=== PATIENT | male | born 1990 | race Caucasian/White ===

== ENCOUNTER 2017-07-21 16:37 | Inpatient (IN) | payer MEDICAID ==
[~2017-07-21] VITALS: Ht 182.9 cm; Wt 105.5 kg
[2017-07-21] MEDS ORDERED: ZOLPIDEM TARTRATE 10 MG TABLET PO PRN (20:00)
[2017-07-21] MEDS ORDERED: HALOPERIDOL 5 MG TABLET PO PRN (20:00)
[2017-07-21] MEDS ORDERED: LORazepam 2 MG TABLET PO PRN (20:00)
[2017-07-22 14:30] VITALS: BP 138/83
[2017-07-23 08:08] VITALS: BP 132/79
[2017-07-23] MEDS: OLANZapine 5 MG TABLET PO SCH (11:48)
[2017-07-24 08:16] VITALS: BP 140/77
[2017-07-24] MEDS: OLANZapine 5 MG TABLET PO SCH ×2 (08:54→17:06)
[2017-07-25] MEDS: OLANZapine 5 MG TABLET PO SCH ×2 (08:32→16:41)
[2017-07-25] MEDS ORDERED: OLANZapine 5 MG TABLET PO SCH (17:00)
[2017-07-26 08:00] VITALS: BP 123/73
[2017-07-26] MEDS: OLANZapine 10 MG TABLET PO SCH ×3 (09:00→17:00)
[2017-07-27] MEDS: OLANZapine 10 MG TABLET PO SCH ×2 (08:46→17:43)
[2017-07-28 08:58] VITALS: BP 133/84
[2017-07-28] MEDS: OLANZapine 10 MG TABLET PO SCH ×2 (09:32→17:52)
[2017-07-29] MEDS: OLANZapine 10 MG TABLET PO SCH ×2 (09:07→16:55)
[2017-07-30] MEDS: OLANZapine 10 MG TABLET PO SCH ×2 (08:17→16:53)
[2017-07-30 17:35] VITALS: BP 134/85
[2017-07-31] MEDS: OLANZapine 10 MG TABLET PO SCH ×2 (08:30→16:11)
[2017-07-31 17:29] VITALS: BP 110/50
[2017-07-31 20:05] VITALS: BP 124/65
[2017-08-01] MEDS: SERTRALINE HCL 50 MG TABLET PO SCH (08:52)
[2017-08-01] MEDS: OLANZapine 10 MG TABLET PO SCH ×2 (08:52→16:47)
[2017-08-02 08:00] VITALS: BP 131/68
[2017-08-02] MEDS: SERTRALINE HCL 50 MG TABLET PO SCH (09:40)
[2017-08-02] MEDS: OLANZapine 10 MG TABLET PO SCH ×2 (09:41→16:32)
[2017-08-03 08:05] VITALS: BP 133/66
[2017-08-03] MEDS: OLANZapine 10 MG TABLET PO SCH ×2 (08:35→18:01)
[2017-08-03] MEDS: SERTRALINE HCL 50 MG TABLET PO SCH (08:35)
[2017-08-03 16:30] VITALS: BP 127/69
[2017-08-04 08:00] VITALS: BP 135/66
[2017-08-04] MEDS: OLANZapine 10 MG TABLET PO SCH ×2 (08:26→17:43)
[2017-08-04] MEDS: SERTRALINE HCL 50 MG TABLET PO SCH (08:26)
[2017-08-05 08:00] VITALS: BP 142/84
[2017-08-05] MEDS: OLANZapine 10 MG TABLET PO SCH ×2 (10:43→17:45)
[2017-08-05] MEDS: SERTRALINE HCL 50 MG TABLET PO SCH (10:43)
[2017-08-05 17:24] VITALS: BP 131/72
[2017-08-06 08:00] VITALS: BP 120/65
[2017-08-06] MEDS: OLANZapine 10 MG TABLET PO SCH ×2 (08:48→16:33)
[2017-08-06] MEDS: SERTRALINE HCL 50 MG TABLET PO SCH (08:48)
[2017-08-06 16:20] VITALS: BP 135/87
[2017-08-07 08:02] VITALS: BP 133/82
[2017-08-07] MEDS: SERTRALINE HCL 50 MG TABLET PO SCH (08:22)
[2017-08-07] MEDS: OLANZapine 10 MG TABLET PO SCH ×2 (08:23→16:19)
[2017-08-07] MEDS: DIVALPROEX SODIUM 500 MG ER TABLET PO SCH (16:19)
[2017-08-08] MEDS: DIVALPROEX SODIUM 500 MG ER TABLET PO SCH ×2 (09:19→15:57)
[2017-08-08] MEDS: OLANZapine 10 MG TABLET PO SCH ×2 (09:22→15:57)
[2017-08-08] MEDS: SERTRALINE HCL 50 MG TABLET PO SCH (09:22)
[2017-08-08] MEDS ORDERED: SERT100T12 PO (13:19)
[2017-08-08] MEDS ORDERED: DIVA500T52 PO (13:19)
[2017-08-08] MEDS ORDERED: OLAN10TA3 PO (13:20)
[2017-08-08 18:44] VITALS: BP 118/65
[2017-08-09 02:13] VITALS: BP 134/83
[2017-08-09 08:04] VITALS: BP 149/97
[2017-08-09] MEDS: DIVALPROEX SODIUM 500 MG ER TABLET PO SCH (08:41)
[2017-08-09] MEDS: SERTRALINE HCL 50 MG TABLET PO SCH (08:42)
[2017-08-09] MEDS: OLANZapine 10 MG TABLET PO SCH (08:42)
== END 2017-08-09 14:30 | disposition home or self-care (01) | DRG 751 ==
LOC: EMS 16:40 → AHU 07-22 13:27 → 3EC 07-23 18:38
PROVIDERS: ADMIT Psychiatry & Neurology Psychiatry; ATTEND Psychiatry & Neurology Psychiatry
DX: F29 Unspecified psychosis not due to a substance or known physiological condition (principal); Z91.14 Patient's other noncompliance with medication regimen; F41.9 Anxiety disorder, unspecified; F10.10 Alcohol abuse, uncomplicated; F94.0 Selective mutism; R25.8 Other abnormal involuntary movements; F19.10 Other psychoactive substance abuse, uncomplicated
CPT/HCPCS: 99285

== ENCOUNTER 2017-08-10 02:18 | Emergency (ER) | payer MEDICAID ==
[~2017-08-10] VITALS: Ht 175.3 cm; Wt 85.0 kg
[~2017-08-10 02:18] MED LIST: DIVA500T52 PO; OLAN10TA3 PO; SERT100T12 PO
[2017-08-10] MEDS ORDERED: LORazepam 2 MG TABLET PO PRN (04:00)
[2017-08-10] MEDS ORDERED: HALOPERIDOL 5 MG TABLET PO PRN (04:00)
[2017-08-10] MEDS ORDERED: ZOLPIDEM TARTRATE 10 MG TABLET PO PRN (04:00)
[2017-08-10 05:12] VITALS: BP 128/71
== END 2017-08-10 05:15 | disposition home or self-care (01) ==
LOC: EMS 02:20
DX: F25.9 Schizoaffective disorder, unspecified (principal); F17.210 Nicotine dependence, cigarettes, uncomplicated
CPT/HCPCS: 99284

== ENCOUNTER 2017-09-01 07:49 | Emergency (ER) | payer MEDICAID, OTHER ==
[~2017-09-01] VITALS: Ht 185.4 cm; Wt 105.0 kg
[2017-09-01] MEDS ORDERED: HALO5TAB23 PO (08:03)
[2017-09-01] MEDS ORDERED: DIPH50 PO (08:03)
[2017-09-01 08:26] LABS: BASOPHILS % (AUTO) 0.8 % (0.0-2.0); EOSINOPHILS % (AUTO) 0.6 % (1.0-6.0); HEMATOCRIT 38.5 % (41-53); HEMOGLOBIN 12.8 g/dL (13.5-17.5); LYMPHOCYTES # (AUTO) 1.4 K/uL (1.0-4.8); LYMPHOCYTES % (AUTO) 13.8 % (22.0-44.0); MEAN CORPUSCULAR HEMOGLOBIN 26.6 pg (26.0-34.0); MEAN CORPUSCULAR HGB CONC 33.2 G/dL (31.0-37.0); MEAN CORPUSCULAR VOLUME 80 fL (80-100); MONOCYTES # (AUTO) 1.2 K/uL (0.1-1.0); MONOCYTES % (AUTO) 12.1 % (2.0-9.0); NEUTROPHILS # (AUTO) 7.2 K/uL (1.8-7.7); NEUTROPHILS % (AUTO) 72.7 % (40.0-70.0); PLATELET COUNT (AUTO) 215 K/uL (150-450); RED CELL DISTRIBUTION WIDTH 15.3 % (11.5-14.5)
[2017-09-01 08:42] LABS: ANION GAP 9 mmol/L (8-16); CALCIUM, TOTAL 9.1 mg/dL (8.8-10.5); CARBON DIOXIDE 29 mmol/L (22-29); CHLORIDE 106 mmol/L (98-107); CREATININE 0.87 mg/dL (0.60-1.30); GLOMERULAR FILTR. RATE CALC > 60 mL/min (>60); GLUCOSE,RANDOM 88 mg/dL (70-110); POTASSIUM 4.6 mmol/L (3.5-5.1); SODIUM SERUM 144 mmol/L (136-145); UREA NITROGEN, BLOOD 17 mg/dL (7-18)
[2017-09-01 08:49] LABS: ALANINE AMINOTRANSFERASE 80 U/L (12-78); ALBUMIN 3.7 g/dL (3.4-5.0); ALKALINE PHOSPHATASE 98 U/L (46-116); ASPARTATE AMINOTRANSFERASE 31 U/L (15-37); BILIRUBIN,TOTAL 0.3 mg/dL (0.1-1.0); TOTAL PROTEIN, SERUM 7.3 g/dL (6.4-8.2)
[2017-09-01 09:02] LABS: VALPROIC ACID < 3 mcg/mL (50-100)
[2017-09-01 09:23] VITALS: BP 150/86
[2017-09-01 09:40] LABS: AMPHET/METH SCREEN,URINE POSITIVE (NEGATIVE); BARBITURATE SCREEN, URINE NEGATIVE (NEGATIVE); BENZODIAZEPINES SCREEN,URINE NEGATIVE (NEGATIVE); CANNABINOID SCREEN,URINE POSITIVE (NEGATIVE); COCAINE SCREEN,URINE NEGATIVE (NEGATIVE); METHADONE SCREEN, URINE NEGATIVE (NEGATIVE); OPIATE SCREEN,URINE NEGATIVE (NEGATIVE)
[2017-09-01 09:45] LABS: PHENCYCLIDINE SCREEN,URINE NEGATIVE (NEGATIVE)
== END 2017-09-01 11:35 | disposition home or self-care (01) ==
LOC: EMS 07:50
DX: F32.9 Major depressive disorder, single episode, unspecified (principal); F17.210 Nicotine dependence, cigarettes, uncomplicated; F12.10 Cannabis abuse, uncomplicated; F15.10 Other stimulant abuse, uncomplicated
CPT/HCPCS: 36415; 80053; 80164; 80307; 85025; 99284; 99406; G0480

== ENCOUNTER 2017-09-02 13:53 | Emergency (ER) | payer OTHER ==
[~2017-09-02] VITALS: Ht 182.9 cm; Wt 100.0 kg
[~2017-09-02 13:53] MED LIST changes: +DIPH50 PO; +HALO5TAB23 PO
[2017-09-02 14:31] VITALS: BP 133/77
[2017-09-02 14:55] LABS: BASOPHILS % (AUTO) 1.1 % (0.0-2.0); EOSINOPHILS % (AUTO) 1.9 % (1.0-6.0); HEMATOCRIT 40.5 % (41-53); HEMOGLOBIN 13.4 g/dL (13.5-17.5); LYMPHOCYTES # (AUTO) 1.4 K/uL (1.0-4.8); LYMPHOCYTES % (AUTO) 18.4 % (22.0-44.0); MEAN CORPUSCULAR HEMOGLOBIN 26.3 pg (26.0-34.0); MEAN CORPUSCULAR HGB CONC 33.1 G/dL (31.0-37.0); MEAN CORPUSCULAR VOLUME 80 fL (80-100); MONOCYTES # (AUTO) 1.1 K/uL (0.1-1.0); MONOCYTES % (AUTO) 14.7 % (2.0-9.0); NEUTROPHILS # (AUTO) 4.8 K/uL (1.8-7.7); NEUTROPHILS % (AUTO) 63.9 % (40.0-70.0); PLATELET COUNT (AUTO) 225 K/uL (150-450); RED BLOOD CELL COUNT(AUTO) 5.08 MIL/uL (4.50-5.90); RED CELL DISTRIBUTION WIDTH 15.1 % (11.5-14.5)
[2017-09-02 15:05] LABS: ANION GAP 10 mmol/L (8-16); CALCIUM, TOTAL 9.2 mg/dL (8.8-10.5); CARBON DIOXIDE 26 mmol/L (22-29); CHLORIDE 106 mmol/L (98-107); CREATININE 0.79 mg/dL (0.60-1.30); GLOMERULAR FILTR. RATE CALC > 60 mL/min (>60); GLUCOSE,RANDOM 56 mg/dL (70-110); POTASSIUM 3.9 mmol/L (3.5-5.1); SODIUM SERUM 142 mmol/L (136-145); UREA NITROGEN, BLOOD 10 mg/dL (7-18)
[2017-09-02 15:11] LABS: ALANINE AMINOTRANSFERASE 87 U/L (12-78); ALBUMIN 3.7 g/dL (3.4-5.0); ALKALINE PHOSPHATASE 97 U/L (46-116); ASPARTATE AMINOTRANSFERASE 37 U/L (15-37); BILIRUBIN,TOTAL 0.5 mg/dL (0.1-1.0); TOTAL PROTEIN, SERUM 7.4 g/dL (6.4-8.2)
[2017-09-02 15:28] LABS: AMPHET/METH SCREEN,URINE POSITIVE (NEGATIVE); BARBITURATE SCREEN, URINE NEGATIVE (NEGATIVE); BENZODIAZEPINES SCREEN,URINE NEGATIVE (NEGATIVE); CANNABINOID SCREEN,URINE POSITIVE (NEGATIVE); COCAINE SCREEN,URINE NEGATIVE (NEGATIVE); METHADONE SCREEN, URINE NEGATIVE (NEGATIVE); OPIATE SCREEN,URINE NEGATIVE (NEGATIVE)
[2017-09-02 15:30] LABS: PHENCYCLIDINE SCREEN,URINE NEGATIVE (NEGATIVE)
== END 2017-09-02 16:12 | disposition home or self-care (01) ==
LOC: EMS 13:56
DX: F25.9 Schizoaffective disorder, unspecified (principal); F32.9 Major depressive disorder, single episode, unspecified; F17.210 Nicotine dependence, cigarettes, uncomplicated
CPT/HCPCS: 36415; 80053; 80307; 85025; 99285; G0480

== ENCOUNTER 2019-12-26 11:59 | Emergency (ER) | payer MEDICAID, OTHER ==
[~2019-12-26] VITALS: Ht 182.9 cm; Wt 102.3 kg
[2019-12-26] MEDS ORDERED: TRIM100 PO (12:23)
[2019-12-26 12:54] LABS: BASOPHILS % (AUTO) 0.5 % (0.0-2.0); EOSINOPHILS % (AUTO) 2.7 % (1.0-6.0); HEMATOCRIT 40.4 % (41-53); LYMPHOCYTES # (AUTO) 0.9 K/uL (1.0-4.8); LYMPHOCYTES % (AUTO) 10.6 % (22.0-44.0); MEAN CORPUSCULAR HEMOGLOBIN 25.8 pg (26.0-34.0); MEAN CORPUSCULAR HGB CONC 32.3 G/dL (31.0-37.0); MEAN CORPUSCULAR VOLUME 80 fL (80-100); MONOCYTES # (AUTO) 0.7 K/uL (0.1-1.0); MONOCYTES % (AUTO) 8.5 % (2.0-9.0); NEUTROPHILS # (AUTO) 6.3 K/uL (1.8-7.7); NEUTROPHILS % (AUTO) 77.7 % (40.0-70.0); PLATELET COUNT (AUTO) 299 K/uL (150-450); RED BLOOD CELL COUNT(AUTO) 5.04 MIL/uL (4.50-5.90); RED CELL DISTRIBUTION WIDTH 14.6 % (11.5-14.5)
[2019-12-26 13:06] LABS: ANION GAP 9 mmol/L (8-16); CALCIUM, TOTAL 8.6 mg/dL (8.8-10.5); CARBON DIOXIDE 28 mmol/L (22-29); CHLORIDE 103 mmol/L (98-107); CREATININE 0.98 mg/dL (0.60-1.30); GLOMERULAR FILTR. RATE CALC > 60 mL/min (>60); GLUCOSE,RANDOM 112 mg/dL (70-110); POTASSIUM 3.9 mmol/L (3.5-5.1); SODIUM SERUM 140 mmol/L (136-145); UREA NITROGEN, BLOOD 9 mg/dL (7-18)
[2019-12-26 13:13] LABS: ALANINE AMINOTRANSFERASE 67 U/L (12-78); ALBUMIN 3.5 g/dL (3.4-5.0); ALKALINE PHOSPHATASE 85 U/L (46-116); ASPARTATE AMINOTRANSFERASE 23 U/L (15-37); BILIRUBIN,TOTAL 0.6 mg/dL (0.1-1.0); TOTAL PROTEIN, SERUM 8.7 g/dL (6.4-8.2)
[2019-12-26 13:17] LABS: AMPHET/METH SCREEN,URINE POSITIVE (NEGATIVE); BARBITURATE SCREEN, URINE NEGATIVE (NEGATIVE); BENZODIAZEPINES SCREEN,URINE NEGATIVE (NEGATIVE); CANNABINOID SCREEN,URINE POSITIVE (NEGATIVE); COCAINE SCREEN,URINE NEGATIVE (NEGATIVE); METHADONE SCREEN, URINE NEGATIVE (NEGATIVE); OPIATE SCREEN,URINE NEGATIVE (NEGATIVE)
[2019-12-26 13:18] LABS: PHENCYCLIDINE SCREEN,URINE NEGATIVE (NEGATIVE)
[2019-12-26 14:12] VITALS: BP 126/81
== END 2019-12-26 14:15 | disposition home or self-care (01) ==
LOC: EMS 12:00
DX: F15.10 Other stimulant abuse, uncomplicated (principal); R45.851 Suicidal ideations; F32.9 Major depressive disorder, single episode, unspecified; F17.210 Nicotine dependence, cigarettes, uncomplicated; F12.90 Cannabis use, unspecified, uncomplicated; F19.90 Other psychoactive substance use, unspecified, uncomplicated
CPT/HCPCS: 36415; 80053; 80307; 85025; 99285; G0480